=== PATIENT | female | born 1960 | race Two or more races ===

== ENCOUNTER → 2020-04-25 | Day surgery (SDC) | payer OTHER ==
[~2020-04-25] MED LIST: CELEBREX200MG PO; COZAAR50 MG PO; FORTAMET500 MG PO; LANTUS NASAL; NABUMETONE500 MG PO; SYNTHROID75 MCG PO
== END | disposition home or self-care (01) ==
LOC: ADM 04-19 07:00 → CIR.AMB 05:02
PROVIDERS: ATTEND Specialist
DX: D17.1 Benign lipomatous neoplasm of skin and subcutaneous tissue of trunk (principal)